=== PATIENT | female | born 2000 | race Two or more races ===

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

== ENCOUNTER 2022-06-02 23:55 | Emergency (ER) | payer OTHER ==
[~2022-06-02] VITALS: Ht 147.3 cm; Wt 54.5 kg
[2022-06-03 00:30] LABS: BASOPHILS % (AUTO) 1.4 % (0.0-2.0); HEMATOCRIT 38.9 % (36-46); LYMPHOCYTES # (AUTO) 4.5 K/uL (1.0-4.8); LYMPHOCYTES % (AUTO) 44.4 % (22.0-44.0); MEAN CORPUSCULAR HEMOGLOBIN 28.1 pg (26.0-34.0); MEAN CORPUSCULAR HGB CONC 33.4 G/dL (31.0-37.0); MEAN CORPUSCULAR VOLUME 84 fL (80-100); MONOCYTES # (AUTO) 0.8 K/uL (0.1-1.0); NEUTROPHILS # (AUTO) 4.3 K/uL (1.8-7.7); NEUTROPHILS % (AUTO) 42.2 % (40.0-70.0); PLATELET COUNT (AUTO) 226 K/uL (150-450); RED BLOOD CELL COUNT(AUTO) 4.62 MIL/uL (4.00-5.20); RED CELL DISTRIBUTION WIDTH 14.2 % (11.5-14.5)
[2022-06-03 00:40] LABS: ANION GAP 13 mmol/L (8-16); CALCIUM, TOTAL 9.9 mg/dL (8.8-10.5); CARBON DIOXIDE 27 mmol/L (22-29); CHLORIDE 98 mmol/L (98-107); CREATININE 0.84 mg/dL (0.60-1.30); GLUCOSE,RANDOM 109 mg/dL (70-110); POTASSIUM 3.8 mmol/L (3.5-5.1); SODIUM SERUM 138 mmol/L (136-145); UREA NITROGEN, BLOOD 10 mg/dL (7-18)
[2022-06-03 00:41] LABS: GLOMERULAR FILTR. RATE CALC > 60 mL/min (>60)
[2022-06-03] MEDS ORDERED: IBUP-1506 PO (00:59)
[2022-06-03] MEDS ORDERED: CYCL-448 PO (00:59)
[2022-06-03] MEDS ORDERED: IBUPROFEN 400 MG TABLET PO ONE (01:00)
[2022-06-03] MEDS ORDERED: CYCLOBENZAPRINE HCL 10 MG TABLET PO ONE (01:00)
[2022-06-03 01:48] VITALS: BP 119/73
== END 2022-06-03 01:54 | disposition home or self-care (01) ==
LOC: EMS 23:56
DX: R07.9 Chest pain, unspecified (principal); J45.909 Unspecified asthma, uncomplicated
CPT/HCPCS: 71045; 80048; 84484; 85025; 93005; 99285; 36415-L1; 36415-TC